=== PATIENT | male | born 1995 | race Caucasian/White ===

== ENCOUNTER 2024-10-09 23:25 | Emergency (ER) | payer OTHER, SELFPAY ==
[2024-10-09 23:48] VITALS: BP 146/78; PULSE 92; RESP 16; TEMP 36.8; O2SAT 92; BMI 40.7
[2024-10-10 00:46] VITALS: BP 131/71; PULSE 84; RESP 20; TEMP 36.8; O2SAT 97
--- NOTE | 2024-10-10 00:53 | ED_ITS ---
HPI - General Adult General Chief complaint: Skin/Abscess/Foreign Body Stated complaint: Sunburn on back Time Seen by Provider: 10/10/24 00:07 Source: patient Mode of arrival: ambulatory Limitations: no limitations History of Present Illness ED Provider: Paresh Mariee HPI narrative: 28 yold helathy male presents to the ED sunburn that now has blisters. Patient states he was sun bathing in [place] and was treating initially with aloe vera but then started developing blisters after. Patient denies any other complaints. Patient states no fever, chills, chest pain, shortness of breath, lip swelling, tongue swelling, drooling, change in voice, leg swelling, calf pain, or pleurisy. Related Data Previous Rx's ?Medication ?Instructions ?Recorded silver sulfadiazine 1 % topical 1 appl topical BID #20 grams 10/10/24 cream Allergies Allergy/AdvReac Type Severity Reaction Status Date / Time No Known Allergies Allergy Verified 10/09/24 23:56 Review of Systems 2 Review of Systems: Sunburn rash Yes all other systems are reviewed and are negative PMFSH Social History Social History Smoked in Last 30 Days: No Substance Use Type: Marijuana Substance Use Frequency: Occasionally Advance Directives: No Advance Directives Information Provided: Yes Do you have a plan to hurt others: No Plan Physical Exam ED Vital Signs: Vital Signs - 24 hr 10/10/24 00:46 10/10/24 02:33 10/10/24 02:47 Temperature 98.3 F 98.3 F 98.3 F Pulse Rate 84 79 79 Respiratory Rate 20 17 17 Blood Pressure 131/71 122/73 122/73 Pulse Oximetry 97 97 97 Oxygen Delivery Method Room Air Room Air Room Air BMI result Body Mass Index 40.7 Const General: cooperative, healthy appearing, comfortable, no acute distress, alert and awake Orientation/consciousness: patient oriented x3 HENMT Head: Yes normal to inspection, Yes No palpable skull fracture present, Yes normocephalic and Yes atraumatic Ears: hearing grossly normal bilaterally, external ears normal, TM's normal bilaterally, TM normal on the right, TM normal on the left, EAC's normal, mastoids normal and no periauricular adenopathy Throat: Yes posterior oropharynx normal, Yes tonsils normal and Yes uvula midline Eyes General: appearance normal, both eyes and all related structures Neck Neck: Yes normal visual inspection, Yes full ROM, Yes no lymphadenopathy, Yes no meningeal signs, Yes trachea midline, Yes supple, No anterior neck swelling and No tender Chest Chest palpation & inspection: normal inspection of the chest and normal palpation of entire chest wall Chest/axillae images: 2 1. First-degree sunburn 2. First-degree sunburn Resp Effort & Inspection: normal respiratory effort and able to speak in complete sentences Auscultation: clear to auscultation bilaterally Cardio Jugular venous distension: no JVD Heart sounds: S1 normal heart sound present and S2 normal heart sound present GI Inspection: Yes normal to inspection Palpation (GI): Soft to palpation, not firm, nontender, no guarding and not rigid General: Yes no CVA tenderness Back/Spine/Pelvis Back: no CVA tenderness and No back tenderness Back/spine/pelvis image: 2 1. Second-degree burn with blisters 2. Second-degree burn with blisters 3. Second-degree burn bluish blisters Skin General skin exam: no rashes or lesions noted, elasticity normal and turgor normal Neuro General: patient oriented x3, gait normal, tone normal, moves all extremities, Normal light touch and pain sensation, no meningeal signs, no focal motor deficits, CN's II-XI intact bilaterally and normal sensation to monofilament Extrem General: Yes normal to inspection, Yes full ROM and Yes capillary refill normal Psych Appearance: grossly normal, well kempt and not disheveled Medical Decision Making Medical Decision Making MDM Narrative: 28-year-old male presents to ED for sun burn from sun bathing that now has blisters. Patient initially was treating with aloe vera but now has worsened. Physical exam negative for any burn or around any joints. Positive now for second-degree burn with blisters. Patient does not need any IV fluids. Patient does not need hospitalization. Patient explained worrisome signs and will be discharged with Silvadene. Patient is up-to-date with Tdap. Not susepcting measles, christi johsson syndrome, cellulitits, lympangitis, osteomyelitits, lyme disease, necrotizing fascitits, or any other life threatening eitologies. Differential Diagnosis Differential Diagnoses: The differential diagnosis associated with the presentation includes (First-degree burn second-degree burn) Admission/Observation Consideration of admission/observation: Escalation of care including admission/observation considered Independent Historian Clinical information obtained from an independent historian. History obtained from or confirmed by: Other (Patient is) Prescription Management I considered prescription management with: Other (Silvadene) Discharge Plan Discharge Clinical Impression: Sunburn, Second degree burn of back Patient Disposition: Home, Self-Care Instructions: Sunburn (ED), Second-Degree Burn (ED) Additional Instructions: Recommend follow up with primary care provider. Return to the ED immediately for any worsening burn, worsening blisters, worsening erythema, pain around the joints, fever, chills, increased thirst, lightheadedness, weakness, dizziness, chest pain, shortness of breath, lip swelling, tongue swelling, sensation of throat closing, any other concerning symptoms. Prescriptions: New silver sulfadiazine 1 % cream 1 appl topical BID Qty: 20 0RF Rx Instructions: apply a 1.5 mm thickness Referrals: [facility] [place] [facility] [Provider Group] (Second-degree burn) Cash Espinoza, [Primary Care Provider] - (Second-degree burn) Stand Alone Forms: Work/School Release Interventions: ED Discharge Assessment Last Done: 10/10/24 02:47 Discharge Date/Time: 10/10/24 02:38 Print Language: Greenlandic
--- NOTE | 2024-10-10 00:54 | PC.NURSE ---
Pt sitting comfortably on the edge of the bed. Pt given callbell and instructed on how to use.
[2024-10-10 02:33] VITALS: BP 122/73; PULSE 79; RESP 17; TEMP 36.8; O2SAT 97
[2024-10-10 02:47] VITALS: BP 122/73; PULSE 79; RESP 17; TEMP 36.8; O2SAT 97
== END 2024-10-10 02:38 | disposition home or self-care (01) ==
PROVIDERS: Emergency Provider Emergency Medicine; PCP Family Medicine
DX: L55.1 Sunburn of second degree (principal); M54.50 Low back pain, unspecified
CPT/HCPCS: 99283; 99284